=== PATIENT | female | born 1990 | race Caucasian/White ===

== ENCOUNTER 2019-10-01 06:35 | Inpatient (IN) | payer OTHER ==
[~2019-10-01] VITALS: Ht 165.1 cm; Wt 69.8 kg
[2019-10-01] VITALS (22 sets, daily range): BP systolic 92–243; BP diastolic 49–149
[2019-10-01] MEDS ORDERED: PRENTAB9 PO (06:59)
[2019-10-01] MEDS ORDERED: LR 1,000 ML IV SCH (07:17)
[2019-10-01] MEDS ORDERED: LACTATED RINGER'S 1000 ML IV ONE (07:30)
[2019-10-01 08:20] LABS: HEMATOCRIT 37.3 % (36.0-47.0); MEAN CORPUSCULAR HEMOGLOBIN 33.6 pg (27.0-33.0); MEAN CORPUSCULAR HGB CONC 34.9 g/dl (32.0-36.5); MEAN CORPUSCULAR VOLUME 96.4 fl (80.0-96.0); PLATELET COUNT, AUTOMATED 159 10^3/uL (150-450); RED BLOOD COUNT 3.87 10^6/uL (4.00-5.40); WHITE BLOOD COUNT 8.8 10^3/uL (4.0-10.0)
[2019-10-01] MEDS: PRENATAL VITAMINS CHEWABLE TABLET PO SCH (09:00)
[2019-10-01] MEDS ORDERED: FENTANYL 2MCG/ML ROPIVACAINE 0.2% IN 0.9% NACL 100ML IVBAG As Ordered ONE (09:34)
[2019-10-01] MEDS ORDERED: EPIDURAL/PCA KEYS XX PRN (10:45)
[2019-10-01] MEDS ORDERED: LACTATED RINGER'S 1000 ML IV PRN (10:45)
[2019-10-01] MEDS ORDERED: FENTANYL/ROPIVACAINE/NACL BAG 100 ML EPIDURAL SCH (10:45)
[2019-10-01] MEDS ORDERED: ONDANSETRON 4MG/2ML VIAL IV PRN (10:45)
[2019-10-01] MEDS ORDERED: REFRIGERATOR IV KEYS XX PRN (10:45)
[2019-10-01] MEDS ORDERED: diphenhydrAMINE 50MG/ML VIAL (J1200) IV PRN (10:45)
[2019-10-01] MEDS ORDERED: ePHEDrine SULFATE 25 MG/5 ML(5MG/ML) SYRINGE IV PRN (10:45)
[2019-10-01] MEDS ORDERED: NALOXONE INJ 0.4MG/1ML VIAL (J2310 PER 1MG) IV PRN (10:45)
[2019-10-01] MEDS ORDERED: EPIDURAL COMMENT XX SCH (10:45)
[2019-10-01] MEDS ORDERED: OXYTOCIN 30 UNITS IN 0.9% NaCl 500ML IV BAG (J2590) As Ordered ONE (12:05)
[2019-10-01] MEDS ORDERED: OXYTOCIN DRIP 30 UNITS in IV 1 EA IV SCH (12:41)
[2019-10-01] MEDS ORDERED: IBUPROFEN 800 MG TAB PO PRN (12:45)
[2019-10-01] MEDS ORDERED: IBUPROFEN 600 MG TAB PO PRN (12:45)
[2019-10-01] MEDS ORDERED: ACETAMINOPHEN 500 MG TAB PO PRN (12:45)
[2019-10-01] MEDS ORDERED: DIBUCAINE 1% OINTMENT 30GM TOP PRN (12:45)
[2019-10-01] MEDS ORDERED: ACETAMINOPHEN TAB 650MG DOSE (2X325MG) PO PRN (12:45)
--- NOTE | 2019-10-01 12:55 | DNPDOC ---
[facility] Delivery Note Delivery Note DATE OF DELIVERY: 10/01/2019 at 1200. PREDELIVERY DIAGNOSIS: 38+2 weeks gestation, SROM and labor. POST DELIVERY DIAGNOSIS: Delivered PROCEDURE: GEOGRAPHIC INFORMATION SYSTEM ANALYST: SHEILA Montaño ANESTHESIA: Epidural ESTIMATED BLOOD LOSS: 150mL. FINDINGS: 5 pound 8 ounce (2490g) female infant, Score 8/9, nuchal cord t imes x1, loose and easily reduced. DELIVERY SUMMARY: Called to room for pt with repetitive late decelerations, starting to have a slow return to baseline. Pt had recently received her epidural and BP noted to be lower than normal. Cervical exam performed and head at +3 station, complete dilitation. Pt was prepped for delivery at this time. Once ready, pt effectively pushed to deliver a viable female infant over a protected perineum. head delivered MELBA and restituted to ROT. Loose nuchal cord noted and easily reduced. Left anterior shoulder delivered with ease, followed by right posterior shoulder, then remainder of body delivered to maternal abdomen where she was dried and stimulated; strong, lusty cry. Once cord stopped pulsating, clamped x2 and cut by FOB; cord blood collected for type and diaz. Placenta delivered spontaneously and appeared intact, 3VC. Pitocin bolus started at this time, fundus firm, EBL 150mL. Upon inspection of vagina, perineum and cervix, a very small abrasion noted at introitus, bleeding stopped with pressure. Family bonding well, anticipate uncomplicated PP course. . NIKOS MONTAÑO CNM October 01, 2019 12:55
--- NOTE | 2019-10-01 20:01 | HPE ---
DATE OF ADMISSION: 10/01/2019 This lady is a 28-year-old 3, para 2, LMP 01/06/2019, EDC 10/13/2019 at 38 and 4 weeks of gestation with history of spontaneous rupture of membranes, clear liqour, no contractions. PAST HISTORY: 1. 06/10/2011, male term, 6 pounds 3 ounces, epidural. 2. 12/26/2012, male term, 6 pounds 14 ounces, epidural. LABORATORY DATA: O positive, HIV negative, hepatitis negative, RPR negative, rubella immune, varicella immune, Pap normal. Urine negative. Gonorrhea and chlamydia are negative, 1 hour glucose 92. GBS is negative. Blood pressure 122/76, respirations 16, pulse 88, temperature is 99.4. Examination of the strips, symphysis fundus height is 40, vertex, category one strip, occiput transverse posterior, 2-3, copious liquor, clear, soft, 50% effaced, -3. We discussed pain management and the effects of epidural and may or may not want IV medications prior. Anticipate contractions with progression. No risk factors at the present time. The rest of the examination is unremarkable. Normocephalic, atraumatic. Neck full range of motion. Pupils equal and reactive to light. Distal pulses are symmetric. No evidence of DVT, PE or superficial phlebitis. Chest is clear bilaterally to bases. No wheezes or rhonchi. No CVA tenderness. Abdomen is soft. Four quadrant bowel sounds are noted. She has no rashes, lesions or pruritus. No arthralgia or myalgia, no complaint of joint pain. No complaints of cough, wheeze, shortness of breath or dyspnea on exertion. No nausea, vomiting, diarrhea or constipation. She is not bleeding. Neurologically complete. No frequency or urgency. No heat or cold sensitivities. No diabetic issues. She has no [employer] COMP[employer] HEL[employer] history. There is no past family history or medical issues. Does not smoke, drink, or abuse drugs. 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 We discussed the consent for vaginal delivery which is delivery through the vagina with possible use of forceps or vacuums which are used for maternal or indications. These are devices that can assist with vaginal delivery when pushing efforts cannot achieve vaginal delivery on their own or when delivery is needed in an emergency for baby's well-being. Medication used to augment labor may be used to assist in active delivery. Also the patient may require repair of laceration or tears of the vagina or vulva that are caused by vaginal delivery. In some cases emergencies arise that require emergency section, only done for maternal or indications and these are when it is safer for the baby to deliver by section than continuing labor and these will be discussed with the provider. Risks of vaginal delivery include but are not limited to bleeding, infection, injury to the vagina, pelvic structures, baby, damage to uterus, reaction to anesthesia, uterine rupture, risk of hysterectomy for life-threatening bleeding or even . Medications used to induce or augment labor may increase the risk of , hysterectomy, hemorrhage, increased risk of perineal or vaginal lacerations, risk of urine or bowel incontinence, increased risk of injury to baby, may cause bruising, scratches hematomas of the head or intracranial bleed. After expressing understanding, 20-minute discussion, all questions were answered. Safe to proceed.
[2019-10-01] MEDS: DOCUSATE SODIUM 100 MG CAP PO PRN (21:53)
[2019-10-02 06:00] VITALS: BP 115/66
[2019-10-02] MEDS: PRENATAL VITAMINS CHEWABLE TABLET PO SCH (09:42)
[2019-10-02 18:00] VITALS: BP 120/72
[2019-10-02] MEDS: DOCUSATE SODIUM 100 MG CAP PO PRN (19:58)
[2019-10-03 05:59] VITALS: BP 116/68
[2019-10-03] MEDS: PRENATAL VITAMINS CHEWABLE TABLET PO SCH (07:43)
[2019-10-03] MEDS ORDERED: IBUP80TA PO (08:11)
[2019-10-03] MEDS ORDERED: DOCU100C16 PO (08:11)
[2019-10-03] MEDS ORDERED: DIBU10OI TOP (08:11)
== END 2019-10-03 13:45 | disposition home or self-care (01) | DRG 807 ==
LOC: M LDO 06:35 → M LDI 07:13 → M OBS 16:58
PROVIDERS: ADMIT Obstetrics & Gynecology; ATTEND Registered Nurse Maternal Newborn
PROC: 10E0XZZ Delivery of Products of Conception, External Approach (ICD-10-PCS; principal; 2019-10-01)
DX: O69.81X0 Labor and delivery complicated by cord around neck, without compression, not applicable or unspecified (principal); Z37.0 Single live birth; Z3A.38 38 weeks gestation of pregnancy